=== PATIENT | male | born 1970 | race African-American/Black ===

== ENCOUNTER 2019-01-17 20:24 | Emergency (ER) | payer MEDICAID ==
[~2019-01-17] VITALS: Ht 175.3 cm; Wt 104.3 kg
[2019-01-17 21:48] LABS: Basophils # (auto) 0.1 uL; Basophils % (auto) 0.8 % (0.0-2.0); Eosinophils # (auto) 0 uL; Eosinophils % (auto) 0.8 % (0.0-7.0); Hematocrit 39.9 % (41.0-53.0); Hemoglobin 13.2 g/dL (13.5-17.5); Lymphocytes # (auto) 1.7 uL; Lymphocytes % (auto) 27.9 % (10.0-50.0); Mean Corpuscular Hemoglobin 33.2 pg (28.0-32.0); Mean Corpuscular Hgb Conc. 33.2 g/dL (32.0-36.0); Monocytes # (auto) 0.4 uL; Monocytes % (auto) 6.3 % (0.0-12.0); Neutrophils % (auto) 64.2 % (37.0-80.0); Nucleated Red Blood Cells % 0.1 %; Platelet Count (auto) 234 10^3/uL (140-450); Red Blood Cells 3.99 10^6/uL (4.5-5.90); Red Cell Distribution Width 14.2 % (11.8-14.3); White Blood Cell 6.2 10^3/uL (4.4-10.8)
[2019-01-17 22:08] LABS: Salicylate < 1.7 mg/dL (2.8-20.0)
[2019-01-17 22:09] LABS: Acetaminophen < 2.0 ug/mL (10-30)
[2019-01-17 22:16] LABS: Alanine Aminotransferase 24 U/L (16-61); Albumin 4.3 g/dL (3.4-5.0); Alkaline Phosphatase 66 U/L (45-117); Anion Gap 7 (5-15); Aspartate Aminotransferase 34 U/L (15-37); BUN/Creatinine Ratio 12.1; Blood Alcohol < 3.0 mg/dL (0-5); Blood Urea Nitrogen 17 mg/dL (7-18); Calcium 8.8 mg/dL (8.5-10.1); Carbon Dioxide 27 mmol/L (21-32); Chloride 104 mmol/L (98-107); GFR African American 70 mL/min; GFR Non-African American 57 mL/min; Glucose 108 mg/dL (74-106); Potassium 3.6 mmol/L (3.5-5.1); Sodium 138 mmol/L (136-145); Total Protein 8.1 g/dL (6.4-8.2)
[2019-01-17 22:17] LABS: Urine Bacteria FEW /hpf (None Seen); Urine Blood Negative /uL (Negative); Urine Mucus FEW (None Seen); Urine Specific Gravity 1.019 (1.001-1.035); Urine Sperm PRESENT /hpf (None Seen); Urine WBC 3 /hpf (0 - 3)
[2019-01-17 22:35] LABS: Alcohol, Urine < 3.0 mg/dL (0-5); Amphetamine Screen, Urine POSITIVE (NEGATIVE); Barbiturate Scree,Urine NEGATIVE (NEGATIVE); Benzodiazephine Screen, Urine NEGATIVE (NEGATIVE); Cannabinoid Screen, Urine POSITIVE (NEGATIVE); Cocaine Screen, Urine NEGATIVE (NEGATIVE); Opiate Scree,Urine NEGATIVE (NEGATIVE); Phencyclidine Screen, Urine NEGATIVE (NEGATIVE)
[2019-01-18 00:09] VITALS: BP 146/97
== END 2019-01-18 01:30 | disposition home or self-care (01) ==
LOC: ER 20:24
DX: S31.813A Puncture wound without foreign body of right buttock, initial encounter (principal); H11.1 Conjunctival degenerations and deposits; F17.210 Nicotine dependence, cigarettes, uncomplicated; Y08.89XA Assault by other specified means, initial encounter; Y93.89 Activity, other specified; Y99.8 Other external cause status; Y92.89 Other specified places as the place of occurrence of the external cause
CPT/HCPCS: 36415; 80053; 80307; 80320; 80329; 81001; 85025

== ENCOUNTER 2024-09-18 15:30 | Inpatient (IN) | payer MEDICAID ==
[~2024-09-18] VITALS: Ht 175.3 cm; Wt 111.2 kg
[2024-09-18] MEDS: SODIUM CHLORIDE 0.9% 1,000 ML IV ONE (16:06)
--- NOTE | 2024-09-18 16:30 | ED.PDOC ---
History of Present Illness HPI Comments This patient is a pleasant but morbidly obese 53 year old male with a Hx of DM presents to the ED fro the c/c of Hyperglycemia. Pt states that he was recently Dx with DM and prescribed 500 of metformin twice a day. Patient has received any diabetic counseling or training and does not understand aspects of m anagement of his condition. Noted that pts blood sugar upon triage examination was 473 and 492 with no improvement. Pt also notes of associated Generalized weakness and Dizziness. No other associated symptoms, modifiers, recent injuries or sick contacts present at this time. Patient was ambulating with a walker due to his unstable gait. Vital signs were stable. Chief Complaint: Hyperglycemia Time Seen by MD: 16:26 Primary Care Provider: NONE Reviewed Notes: Nurses Notes, Medications, Allergies Allergies: Coded Allergies: NO KNOWN ALLERGIES (Unverified , 01/08/10) Information Source: Patient Mode of Arrival: Ambulatory Severity: Moderate Timing: Hours Duration: Since onset, Hours Prehospital treatment: None Past Medical History PAST MEDICAL HISTORY: DM Surgical History: Denies all surgeries Family History Family History: Reviewed,noncontributory to illness Social History Smoker: Cigarettes Alcohol: Occasionally Drugs: Denies Drug Use Lives In: Home Constitutional: reports: fatigue, malaise, weakness; denies: chills, diaphoresis, fever, sweats, others EENTM: denies: blurred vision, double vision, ear bleeding, ear discharge, ear drainage, ear pain, ear ringing, eye pain, eye redness, hearing loss, mouth pain, mouth swelling, nasal discharge, nose bleeding, nose congestion, nose pain, photophobia, tearing, throat pain, throat swelling, voice changes, others Respiratory: denies: cough, hemoptysis, orthopnea, SOB at rest, shortness of breath, SOB with excertion, stridor, wheezing, others Cardiovascular: denies: chest pain, dizzy spells, diaphoresis, Dyspnea on exertion, edema, irregular heart beat, left arm pain, lightheadedness, palpitations, PND, syncope, others Gastrointestinal: denies: abdomen distended, abdominal pain, blood streaked bowels, constipated, diarrhea, dysphagia, difficulty swallowing, hematemesis, melena, nausea, poor appetite, poor fluid intake, rectal bleeding, rectal pain, vomiting, others Genitourinary: denies: burning, dysuria, flank pain, frequency, hematuria, incontinence, penile discharge, penile sore, pain, testicle pain, testicle swelling, urgency, others Neurological: reports: dizziness; denies: fainting, headache, left sided numbness, left sided weakness, numbness, paresthesia, pre-existing deficit, right sided numbness, right sided weakness, seizure, speech problems, tingling, tremors, weakness, others Musculoskeletal: denies: back pain, gout, joint pain, joint swelling, muscle pain, muscle stiffness, neck pain, others Integumetry: denies: bruises, change in color, change in hair/nails, dryness, laceration, lesions, lumps, rash, wounds, others Allergic/Immunocompromised: denies: Difficulty Healing, Frequent Infections, Hives, Itching, others Hematologic/Lymphatic: denies: anemia, blood clots, easy bleeding, easy bruising, swollen glands, others Endocrine: denies: excessive hunger, excessive sweating, excessive thirst, excessive urination, flushing, intolerance to cold, intolerance to heat, unexplained weight gain, unexplained weight loss, others Psychiatric: denies: anxiety, bipolar disorder, depression, hopeless, panic disorder, schizophrenia, sleepless, suicidal, others All Other Systems: Reviewed and Negative Physical Exam General Appearance: Moderate Distress (Patient appears to be in moderate distress due to generalized weakness concerns.), Obese HEENT: Pharynx Normal, TMs Normal, Other (Patient presents with bilateral scleral injection.) Neck: Full Range of Motion, Non-Tender, Normal, Normal Inspection Respiratory: Chest Non-Tender, Lungs Clear, No Accessory Muscle Use, No Respiratory Distress, Normal Breath Sounds Cardiovascular: No Edema, No JVD, No Murmur, No Gallop, Normal Peripheral Pulses, Regular Rate/Rhythm Breast Exam: Deferred Gastrointestinal: No Organomegaly, Non Tender, No Pulsatile Mass, Normal Bowel Sounds, Soft Genitalia: Deferred Pelvic: Deferred Rectal: Deferred Extremities: No calf tenderness, Normal capillary refill, Non-tender, No pedal edema Musculoskeletal : Apperance: Normal Neurologic: Alert, Normal Affect, Normal Mood Cerebellar Function: NOT DONE Reflexes: NOT DONE Skin: Dry, Normal Color, Warm Lymphatic: No Adenopathy Was a procedure done? Was a procedure done?: No Differential Dx Considerations may include: Hyperglycemia, electrolyte abnormality, sepsis X-Ray, Labs, Meds, VS Vital Signs Date Time Temp Pulse Resp B/P (MAP) Pulse Ox O2 Delivery O2 Flow Rate FiO2 09/18/24 19:14 97.9 90 17 118/77 (91) 97 97.9 09/18/24 17:47 98.1 95 16 148/93 (111) 96 98.1 09/18/24 16:01 97.9 105 18 115/79 (91) 97 97.9 09/18/24 16:01 105 18 97 Room Air 09/18/24 15:57 98.3 99 20 128/76 (93) 96 98.3 Lab Test 09/18/24 20:27 09/18/24 18:57 09/18/24 16:19 09/18/24 16:03 Range/Units POC Glucose 302 H 444 *H 70-106 mg/dl White Blood Count 3.7 L 4.4-10.8 10^3/uL Red Blood Count 4.08 L 4.5-5.90 10^6/uL Hemoglobin 12.5 L 13.5-17.5 g/dL Hematocrit 37.8 L 41.0-53.0 % Mean Corpuscular Volume 92.8 80.0-100.0 fL Mean Corpuscular Hemoglobin 30.6 28.0-32.0 pg Mean Corpuscular Hemoglobin Concent 33.0 32.0-36.0 g/dL Red Cell Distribution Width 15.0 H 11.8-14.3 % Platelet Count 183 140-450 10^3/uL Mean Platelet Volume 10.0 6.9-10.8 fL Neutrophils (%) (Auto) 44.5 37.0-80.0 % Lymphocytes (%) (Auto) 45.6 10.0-50.0 % Monocytes (%) (Auto) 7.0 0.0-12.0 % Eosinophils (%) (Auto) 1.9 0.0-7.0 % Basophils (%) (Auto) 1.0 0.0-2.0 % Neutrophils # (Auto) 1.7 1.6-8.6 10 ^3/uL Lymphocytes # (Auto) 1.7 0.4-5.4 10 ^3/uL Monocytes # (Auto) 0.3 0-1.3 10 ^3/uL Eosinophils # (Auto) 0.1 0-0.8 10 ^3/uL Basophils # (Auto) 0 0-0.2 10 ^3/uL Nucleated Red Blood Cells 0.2 % Sodium Level 133 L 136-145 mmol/L Potassium Level 4.6 3.5-5.1 mmol/L Chloride Level 97 L 98-107 mmol/L Carbon Dioxide Level 29 20-31 mmol/L Anion Gap 7 5-15 Blood Urea Nitrogen 9 9-23 mg/dL Creatinine 1.35 H 0.700-1.30 mg/dL Glomerular Filtration Rate Calc 63 >90 mL/min BUN/Creatinine Ratio 6.7 L 10.0-20.0 Serum Glucose 489 *H 74-106 mg/dL Calcium Level 9.6 8.7-10.4 mg/dL Total Bilirubin 0.5 0.2-1.0 mg/dL Aspartate Amino Transferase (AST) 15 13-40 U/L Alanine Aminotransferase (ALT) 13 7-40 U/L Alkaline Phosphatase 82 46-116 U/L Troponin I High Sensitivity 18 </=54 ng/L B-Type Natriuretic Peptide 22.55 0-100 pg/mL Total Protein 6.2 5.7-8.2 g/dL Albumin 3.9 3.2-4.8 g/dL Urine Color Light-yellow Yellow Urine Clarity Clear Clear Urine pH 8.0 5.0-9.0 Urine Specific [place] 1.028 1.001-1.035 Urine Protein Negative Negative Urine Ketones Trace Negative Urine Blood Negative Negative /uL Urine Nitrite Negative Negative Urine Bilirubin Negative Negative Urine Urobilinogen Normal Negative mg/dL Urine Leukocyte Esterase Negative Negative /uL Urine RBC <1 0 - 3 /hpf Urine Microscopic WBC < 1 0-3 /HPF Urine Squamous Epithelial Cells None seen <5 /hpf Urine Bacteria None seen None Seen /hpf Urine Glucose 4+ H Normal mg/dL Test 09/18/24 15:45 09/18/24 15:44 Range/Units POC Glucose 492 *H 473 *H 70-106 mg/dl Current Medications Medications (Trade) Dose Ordered Sig/Denia Route Start Time Stop Time Status Last Admin Sodium Chloride 1,000 ml @ 1,000 mls/hr Q1H ONCE IV 09/18/24 16:00 09/18/24 16:59 DC 09/18/24 16:06 Insulin Human Regular (InsuLIN R) 12 units ONCE ONCE SC 09/18/24 17:00 7/4/25 17:01 DC 09/18/24 17:05 Insulin Human Regular (InsuLIN R) 15 units ONCE ONCE IV 09/18/24 19:00 09/18/24 19:01 DC 09/18/24 19:21 X-Ray, Labs, Meds, VS Comment All studies performed in the ED were evaluated by me personally. Laboratories studies were remarkable for a mild hyponatremia but a significant hyperglycemic state. Multiple rounds of regular insulin wound was utilized to attempt to reduce the patient's blood sugar concerns. After multiple rounds of insulin, patient's blood sugar remained above 300. Patient will be admitted for additional stabilization of his blood sugar concerns as well as proper instruction and direction for home management of his diabetic concerns. Time of 1ST Reevaluation: 20:49 Reevaluation 1ST: Unchanged Consultation: PCP Patient Education/Counseling: Diagnosis, Treatment, Need For Follow Up Family Education/Counseling: Diagnosis, Treatment, No Family Present SEPSIS Sepsis Screen Date sepsis recognized/suspect: Sep 18, 2024 Time Sepsis recognized/suspect: 1557 Recent Procedure: No On Antibiotic Therapy: No Respiratory Rate >20: No Heart Rate >90: Yes Temp<36 C (96.8 F) or >38.3 C: No SBP <90 or MAP <65 mmHG: No New Acute Mental Status Change: No Is the patient on CPAP, BIPAP,: No Physician Orders Heplock Iv (09/18/24 ) Electrocardigram (09/18/24 15:49) Vital Signs Date Time Temp Pulse Resp B/P (MAP) Pulse Ox O2 Delivery O2 Flow Rate FiO2 09/18/24 19:14 97.9 90 17 118/77 (91) 97 97.9 09/18/24 17:47 98.1 95 16 148/93 (111) 96 98.1 09/18/24 16:01 97.9 105 18 115/79 (91) 97 97.9 09/18/24 16:01 105 18 97 Room Air 09/18/24 15:57 98.3 99 20 128/76 (93) 96 98.3 Laboratory Tests Test 09/18/24 16:19 White Blood Count 3.7 10^3/uL (4.4-10.8) L Medications Medications Dose Ordered Sig/Denia Route Start Time Stop Time Status Last Admin Dose Admin Insulin Human Regular 12 units ONCE ONCE SC 09/18/24 17:00 09/18/24 17:01 DC 09/18/24 17:05 Insulin Human Regular 15 units ONCE ONCE IV 09/18/24 19:00 09/18/24 19:01 DC 09/18/24 19:21 Sodium Chloride 1,000 ml @ 1,000 mls/hr Q1H ONCE IV 09/18/24 16:00 09/18/24 16:59 DC 09/18/24 16:06 Departure 1 Departure Time of Disposition: 20:49 Impression: Primary Impression: Hyperglycemia due to diabetes mellitus Additional Impressions: Hyponatremia Risk for falls Disposition: ADMITTED INPATIENT Condition: Fair Discharged With: Self Critical Care Note Critical Care Time?: No Stability Stability form required: No Heart Score Heart Score: Heart Score Response (Comments) Value History N/A 0 EKG N/A 0 Age 45-64 1 Risk Factors No known risk factors 0 Troponin N/A 0 Total 1 I personally scribed for LOWELL SHAW PAC ([email or web address]) on 09/18/24 at 16:30. Electronically submitted by Agustín Davidson ([email or web address]). LOWELL SHAW PAC Sep 18, 2024 16:30
[2024-09-18 16:34] LABS: Hematocrit 37.8 % (41.0-53.0); Hemoglobin 12.5 g/dL (13.5-17.5); Mean Corpuscular Hemoglobin 30.6 pg (28.0-32.0); Mean Corpuscular Volume 92.8 fL (80.0-100.0); Nucleated Red Blood Cells % 0.2 %
[2024-09-18 16:51] LABS: Alanine Aminotransferase 13 U/L (7-40); Albumin 3.9 g/dL (3.2-4.8); Alkaline Phosphatase 82 U/L (46-116); Anion Gap 7 (5-15); BUN/Creatinine Ratio 6.7 (10.0-20.0); Blood Urea Nitrogen 9 mg/dL (9-23); Calcium 9.6 mg/dL (8.7-10.4); Carbon Dioxide 29 mmol/L (20-31); Potassium 4.6 mmol/L (3.5-5.1); Total Protein 6.2 g/dL (5.7-8.2)
[2024-09-18 16:52] LABS: Bilirubin, Total 0.5 mg/dL (0.2-1.0); Chloride 97 mmol/L (98-107); Sodium 133 mmol/L (136-145)
[2024-09-18 16:57] LABS: Glucose 489 mg/dL (74-106)
[2024-09-18] MEDS: InsuLIN REG 1unit/0.01ml Soln (100units/ml) SC ONE (17:05)
[2024-09-18 17:38] LABS: Urine Protein, UAD Negative (Negative)
[2024-09-18] MEDS: InsuLIN REG 1unit/0.01ml Soln (100units/ml) IV ONE (19:21)
--- NOTE | 2024-09-18 23:27 | DVHHP2 ---
History of Present Illness History of Present Illness This is a 53-year-old male with past medical history of DM2, HTN presented to ED with the complain of feeling dizzy, anxious and occasionally blurry vision. Patient visited to ER in [place] 3rd week of August due to similar symptoms and found his blood sugar level was high. Patient treated with insulin, IV fluid and discharged home with glucose monitor. Patient checked his blood sugar at home and found his blood sugar high which ranges 350 to 600. Patient followed up with his primary care and prescribed oral metformin and advised to monitor blood sugar daily. Patient found his blood sugar > 300 though taking oral metformin. Last blood sugar at home 360,466. Patient used walker last three days because he is pretending to fall. Patient also mentally disturbed by his neighbor, they consistently keep presser to leave his house. Patient lives alone and follow up with psychiatrist and prescribed anxiety medication unable to mentioned, took as needed. Currently patient denies any chest pain, shortness of breath, nausea, vomiting, abdominal pain, headache or any acute distress. Past medical history: Diabetes mellitus, hypertension Surgical history: None Personal and social history: Lives alone, denies any smoking, EtOH use, any substance use , drive [place]. Allergy: No known allergy MEDICINE: METFORMIN 500 mg, losartan 100 mg. PCP: UNABLE TO RECALL THE NAME. Review of Systems Constitutional: Yes: Fever, Chills, Sweats, Weakness, Malaise, Other Eyes: Pain, Vision change, Conjunctivae inflammation, Eyelid inflammation, Other, Redness ENT: Ear pain, Ear discharge, Nose pain, Nose discharge, Nose congestion, Mouth pain, Mouth swelling, Throat pain, Throat swelling, Other Respiratory: Cough, Dry, Shortness of breath, SOB with excertion, Wheezing, He moptysis, Pleuritic Pain, Sputum, Wheezing, Other Cardiovascular: Chest Pain, Palpitations, Orthopnea, Paroxysmal Noc. Dyspnea, Edema, Lt Headedness, Other Gastrointestinal: Nausea, Vomiting, Abdominal Pain, Diarrhea, Constipation, Melena, Hematochezia, Other Genitourinary: Dysuria, Frequency, Incontinence, Hematuria, Retention, Other Musculoskeletal: other, neck pain, shoulder pain, arm pain, back pain, hand pain, leg pain, foot pain Neurological: Weakness, Numbness, Incoordination, Change in speech, Confusion, Seizures, Other Allergies: Coded Allergies: NO KNOWN ALLERGIES (Unverified , 01/08/10) Exam Vital Signs Vital Signs Date Time Temp Pulse Resp B/P (MAP) Pulse Ox O2 Delivery O2 Flow Rate FiO2 09/18/24 21:57 98.2 66 18 119/84 (96) 98 98.2 09/18/24 16:01 Room Air General Appearance: Alert, Oriented X3, Cooperative, No acute distress HEENT: Atraumatic, PERRLA, EOMI Respiratory: Clear to auscultation Cardiovascular: Regular rate, Normal S1, Normal S2 Abdominal: Normal bowel sounds, Soft, No tenderness, No hepatospenomegaly, No masses Extremities: No clubbing, No cyanosis, No edema Skin: No rashes, No breakdown Neuro: Other (Use walker for ambulation) Labs/Xrays Labs Test 09/18/24 20:27 09/18/24 16:19 09/18/24 16:03 Range/Units POC Glucose 302 H 70-106 mg/dl White Blood Count 3.7 L 4.4-10.8 10^3/uL Red Blood Count 4.08 L 4.5-5.90 10^6/uL Hemoglobin 12.5 L 13.5-17.5 g/dL Hematocrit 37.8 L 41.0-53.0 % Mean Corpuscular Volume 92.8 80.0-100.0 fL Mean Corpuscular Hemoglobin 30.6 28.0-32.0 pg Mean Corpuscular Hemoglobin Concent 33.0 32.0-36.0 g/dL Red Cell Distribution Width 15.0 H 11.8-14.3 % Platelet Count 183 140-450 10^3/uL Mean Platelet Volume 10.0 6.9-10.8 fL Neutrophils (%) (Auto) 44.5 37.0-80.0 % Lymphocytes (%) (Auto) 45.6 10.0-50.0 % Monocytes (%) (Auto) 7.0 0.0-12.0 % Eosinophils (%) (Auto) 1.9 0.0-7.0 % Basophils (%) (Auto) 1.0 0.0-2.0 % Neutrophils # (Auto) 1.7 1.6-8.6 10 ^3/uL Lymphocytes # (Auto) 1.7 0.4-5.4 10 ^3/uL Monocytes # (Auto) 0.3 0-1.3 10 ^3/uL Eosinophils # (Auto) 0.1 0-0.8 10 ^3/uL Basophils # (Auto) 0 0-0.2 10 ^3/uL Nucleated Red Blood Cells 0.2 % Sodium Level 133 L 136-145 mmol/L Potassium Level 4.6 3.5-5.1 mmol/L Chloride Level 97 L 98-107 mmol/L Carbon Dioxide Level 29 20-31 mmol/L Anion Gap 7 5-15 Blood Urea Nitrogen 9 9-23 mg/dL Creatinine 1.35 H 0.700-1.30 mg/dL Glomerular Filtration Rate Calc 63 >90 mL/min BUN/Creatinine Ratio 6.7 L 10.0-20.0 Serum Glucose 489 *H 74-106 mg/dL Calcium Level 9.6 8.7-10.4 mg/dL Total Bilirubin 0.5 0.2-1.0 mg/dL Aspartate Amino Transferase (AST) 15 13-40 U/L Alanine Aminotransferase (ALT) 13 7-40 U/L Alkaline Phosphatase 82 46-116 U/L Troponin I High Sensitivity 18 </=54 ng/L B-Type Natriuretic Peptide 22.55 0-100 pg/mL Total Protein 6.2 5.7-8.2 g/dL Albumin 3.9 3.2-4.8 g/dL Urine Color Light-yellow Yellow Urine Clarity Clear Clear Urine pH 8.0 5.0-9.0 Urine Specific [place] 1.028 1.001-1.035 Urine Protein Negative Negative Urine Ketones Trace Negative Urine Blood Negative Negative /uL Urine Nitrite Negative Negative Urine Bilirubin Negative Negative Urine Urobilinogen Normal Negative mg/dL Urine Leukocyte Esterase Negative Negative /uL Urine RBC <1 0 - 3 /hpf Urine Microscopic WBC < 1 0-3 /HPF Urine Squamous Epithelial Cells None seen <5 /hpf Urine Bacteria None seen None Seen /hpf Urine Glucose 4+ H Normal mg/dL Assessment/Plan Assessment/Plan #Uncontrolled type2 Diabetes Mellitus with hyperglycemia -Patient came with symptoms of hyperglycemia -In ED blood sugar 489, received regular insulin, NS bolus. - Home FSBS >300 -Recently started oral metformin 500 MG BID -Anion gap 7 -Troponin 18 -BNP 22.55 - carbohydrate controlled diet -Lantus 15 units bedtime, ordered but pt received late.pls, adjust dose accordingly. - Lipitor 40 mg p.o. daily, pt age >40 yrs and prophylaxis. -Insulin sliding dose -Monitor blood sugar - HBA1c 13.2, TSH 1.81 -diabetic education # CAILIN due to vasomotor nephropathy, CKD stage 2 -SERUM CREATININE 1.35 -eGFR 66 -continue IV fluid 100 cc/hour -monitor BMP -Follow urine protein creatinine ratio -Hold losartan for now # Essential hypertension -patient is on losartan 100 mg p.o. daily -Hold losartan for now due to CAILIN. -we will resume after follow up BMP -life is style modification #Anxiety disorder -patient seen psychiatrist outside and prescribed anxiety medication but unable to recall name #Morbid Obesity -BMI 36.9 - lipid profile: TG 250. LDL 71 # Pseudohyponatremia Hyponatremia due to hyperglycemia -ON admission sodium level 133 -Corrected sodium 139 -repeat sodium- 136 # GI prophylaxis: Continue famotidine 40 mg daily # DVT prophylaxis: Patient ambulating # diet: Diabetic diet Goals of care discussion, is spent more than 26 minutes. Code status-full code Case discussed with Dr. Mcnally. Plan discussed with: Patient, Other (Nurse) My Orders Orders - DESTIN CURRIE Procedure Category Date Status Time Admit ADMIT 09/18/24 Verified 23:23 Nitroglycerin PHA 09/18/24 Verified Sublingual (Ntrostat 23:30 Morphine Sulfate PHA 09/18/24 Verified Injection 23:30 Date of Service: Sep 18, 2024 Billing Provider: RICHAR MCNALLY MD Common Visit Codes: [id number] INP/OBS CARE (HIGH) Secondary Visit Codes: [id number] CARE PLAN 30 MINUTES DESTIN CURRIE Sep 18, 2024 23:27
[2024-09-18] MEDS ORDERED: MORPHINE SULFATE INJ 2 MG/ml SYRG IV PRN (23:30)
[2024-09-18] MEDS ORDERED: NITROGLYCERIN 0.4 MG SL TAB SL PRN (23:30)
[2024-09-19 04:39] LABS: Chloride 101 mmol/L (98-107); Potassium 3.8 mmol/L (3.5-5.1)
[2024-09-19 04:40] LABS: Anion Gap 8 (5-15); Carbon Dioxide 27 mmol/L (20-31)
[2024-09-19 04:41] LABS: Calcium 9.8 mg/dL (8.7-10.4)
[2024-09-19 04:46] LABS: BUN/Creatinine Ratio 6.2 (10.0-20.0)
[2024-09-19 04:48] LABS: Cholesterol 156 mg/dL (< 200)
[2024-09-19 04:50] LABS: Blood Urea Nitrogen 8 mg/dL (9-23); Glucose 291 mg/dL (74-106); HDL Cholesterol 28 mg/dL (40-59); Sodium 136 mmol/L (136-145); Triglycerides 250 mg/dL (< 150)
[2024-09-19 04:51] VITALS: BP 138/94; PULSE 72; PULSE 78; RESP 17; RESP 18; TEMP 97.7; O2SAT 97; O2SAT 99
[2024-09-19] MEDS ORDERED: METF-370 PO (06:26)
[2024-09-19] MEDS ORDERED: CHOL20007 PO (06:26)
[2024-09-19] MEDS ORDERED: LOSA-535 PO (06:26)
[2024-09-19] MEDS: ATORVASTATIN 20 MG TAB PO ONE (06:45)
[2024-09-19] MEDS: InsuLIN REG 1unit/0.01ml Soln (100units/ml) SC SCH (07:00)
[2024-09-19] MEDS: INSULIN LANTUS (GLARGINE) 1 /0.01ml (100units/ml) SC SCH (07:01)
[2024-09-19] MEDS: SODIUM CHLORIDE 0.9% 1,000 ML IV SCH (07:02)
[2024-09-19] MEDS: InsuLIN REG 1unit/0.01ml Soln (100units/ml) SC ONE (07:30)
[2024-09-19 08:00] VITALS: PULSE 76; RESP 17
[2024-09-19] MEDS: FAMOTIDINE 20 MG TAB PO SCH (08:57)
[2024-09-19 09:00] VITALS: BP 137/84; PULSE 92; RESP 20; TEMP 98.3; O2SAT 97
[2024-09-19] MEDS: INSULIN LISPRO (HUMAN) 100 UNITS/ML ML SC SCH (11:23)
[2024-09-19 13:00] VITALS: BP 138/91; PULSE 86; RESP 20; TEMP 98.2; O2SAT 96
[2024-09-19 17:00] VITALS: BP 133/96; PULSE 85; RESP 20; TEMP 98.5; O2SAT 96
--- NOTE | 2024-09-19 20:23 | DVHPNRES ---
Progress Note Date Seen: Sep 19, 2024 Resident Creating Document: CHRISTIAN PEDERSON RESIDENT Medical Necessity Reason Pt with a Central, PICC or Fol: No Subjective Review of Systems This is a 53-year-old male with past medical history of DM2, HTN presented to ED with the complain of feeling dizzy, anxious and occasionally blurry vision. Patient visited to ER in [place] 3rd week of August due to similar symptoms and found his blood sugar level was high. Patient treated with insulin, IV fluid and discharged home with glucose monitor. Patient checked his blood sugar at home and found his blood sugar high which ranges 350 to 600. Patient followed up with his primary care and prescribed oral metformin and advised to monitor blood sugar daily. Patient found his blood sugar > 300 though taking oral metformin. Last blood sugar at home 360,466. Patient used walker last three days because he was weak, unstable and risk of fall. Patient also mentally disturbed by his neighbor, they consistently keep pressure to leave his house. Patient lives alone and follow up with psychiatrist and prescribed anxiety medication unable to mentioned, took as needed. Currently patient denies any chest pain, shortness of breath, nausea, vomiting, abdominal pain, headache or any acute distress. Patient was seen and examined on the bedside. He is alert oriented x3. Mentioned feeling better and no active complaint at this time. Constitutional: No: Fever, Chills, Sweats, Weakness, Malaise, Other Eyes: No: Pain, Vision change, Conjunctivae inflammation, Eyelid inflammation, Other, Redness ENT: No: Ear pain, Ear discharge, Nose pain, Nose discharge, Nose congestion, Mouth pain, Mouth swelling, Throat pain, Throat swelling, Other Respiratory: Shortness of breath, improving No: Cough, Dry,Wheezing, Hemoptysis, Pleuritic Pain, Sputum, Wheezing, Other Cardiovascular: No: Chest Pain, Palpitations, Orthopnea, Paroxysmal Noc. Dyspnea, Edema, Lt Headedness, Other Gastrointestinal: No: Nausea, Vomiting, Abdominal Pain, Diarrhea, Constipation, Melena, Hematochezia, Other Musculoskeletal: No: other, neck pain, shoulder pain, arm pain, back pain, hand pain, leg pain, foot pain Neurological:; No: Weakness, Numbness, Incoordination, Change in speech, Confusion, Seizures Objective vital signs Vital Sign Date Time Temp Pulse Resp B/P (MAP) Pulse Ox O2 Delivery O2 Flow Rate FiO2 7/5/25 17:00 98.5 85 20 133/96 (108) 96 98.5 09/19/24 08:00 Room Air* 0 21 Total Intake and Output 09/18/24 09/18/24 09/19/24 15:00 23:00 07:00 Intake Total 1000 ml 0 ml Balance 1000 ml 0 ml medications Current Medications Medications Dose Ordered Sig/Denia Route Start Time Stop Time Status Last Admin Dose Admin Nitroglycerin 0.4 mg Q5MINP PRN SL 09/18/24 23:30 Morphine Sulfate 2 mg Q30M PRN IV 09/18/24 23:30 Insulin Human Regular AC SC 09/19/24 07:00 09/19/24 17:18 9 UNITS Sodium Chloride 1,000 ml @ 100 mls/hr Q10H IV 09/18/24 23:45 09/19/24 08:02 100 MLS/HR Atorvastatin Calcium 40 mg HS PO 09/19/24 22:00 Famotidine 40 mg DAILY PO 09/19/24 10:00 09/19/24 08:57 40 MG Insulin Glargine 15 units QAM SC 09/20/24 07:00 Insulin Human Lispro 3 units AC SC 09/19/24 11:30 09/19/24 17:19 3 UNITS Losartan Potassium 25 mg DAILY PO 09/20/24 10:00 Examination Physical examination: General Appearance: Alert, Oriented X3, Cooperative, No acute distress HEENT: Atraumatic, PERRLA, EOMI, Mucous membrane moist/pink Respiratory: Clear to auscultation, Normal air movement Cardiovascular: Regular rate, Normal S1, Normal S2, No murmurs, no chest wall tenderness Abdominal: Normal bowel sounds, Soft, No tenderness, No hepatospenomegaly, No masses Extremities: No clubbing, No cyanosis, No edema, Normal pulses, No tenderness/swelling Skin: No rashes, No breakdown, No significant lesion Neuro: Normal gait, Normal speech, Strength at 5/5 X4 ext, Normal tone, Sensation intact, Cranial nerves 3-12 NL, Reflexes 2+ Psych/Mental Status: Mental status NL, Mood NL laboratory and microbiology Laboratory Tests 09/19/24 03:30 09/18/24 16:19 Test 09/19/24 03:30 Range/Units Serum Glucose 291 #H 74-106 mg/dL Labs and/or images reviewed: Labs reviewed by me, Image(s) reviewed by me Problem List/Assessment/Plan Problem List/Assessment/Plan Assessment and plan: # Uncontrolled type 2 diabetes mellitus with hyperglycemia, hemoglobin A1c 13.2 # Hypertriglyceridemia - IV NS at 100 mL/hour - Lantus 15 units at q.a.m., bolus Humalog 3 units as per protocol before each meal and mild sliding scale of insulin - Atorvastatin 40 mg at HS - Monitor blood sugar and adjust insulin as needed. # Essential hypertension - Losartan 25 mg p.o. daily # PUD prophylaxis - Famotidine 40 mg p.o. daily # DVT prophylaxis - Lovenox 40 mg sc daily Plan discussed with the patient for more than 21 minutes full code Plan discussed with Dr. Chawla Plan discussed with: Patient, Other My Orders My Orders Orders - CHRISTIAN PEDERSON Procedure Category Date Status Time Insulin Lispro PHA 09/19/24 In Process (Human) (Humalog) 11:30 Losartan Tablet PHA 09/20/24 In Process (Cozaar Tablet) 10:00 Date of Service: Sep 19, 2024 Billing Provider: ERIKA CHAWLA MD Common Visit Codes: [id number] INP/OBS CARE(HIGH) CHRISTIAN PEDERSON Sep 19, 2024 20:23 ERIKA CHAWLA MD Sep 20, 2024 21:13
[2024-09-19 21:00] VITALS: BP 119/76; PULSE 81; RESP 18; TEMP 99.2; O2SAT 99
[2024-09-19] MEDS: ATORVASTATIN 20 MG TAB PO SCH (21:12)
[2024-09-20 01:00] VITALS: BP 138/91; PULSE 79; RESP 18; TEMP 98.8; O2SAT 95
[2024-09-20 05:00] VITALS: BP 133/96; PULSE 83; RESP 18; TEMP 98.5; O2SAT 95
[2024-09-20 06:10] LABS: Hematocrit 37.7 % (41.0-53.0); Hemoglobin 12.9 g/dL (13.5-17.5); Mean Corpuscular Hemoglobin 31.4 pg (28.0-32.0); Mean Corpuscular Volume 91.9 fL (80.0-100.0); Nucleated Red Blood Cells % 0.4 %
[2024-09-20 06:11] LABS: Chloride 103 mmol/L (98-107); Potassium 3.8 mmol/L (3.5-5.1); Sodium 137 mmol/L (136-145)
[2024-09-20 06:12] LABS: Anion Gap 10 (5-15); Calcium 9.2 mg/dL (8.7-10.4); Carbon Dioxide 24 mmol/L (20-31)
[2024-09-20 06:17] LABS: BUN/Creatinine Ratio 6.9 (10.0-20.0); Blood Urea Nitrogen 9 mg/dL (9-23); Glucose 311 mg/dL (74-106)
[2024-09-20] MEDS: INSULIN LANTUS (GLARGINE) 1 /0.01ml (100units/ml) SC SCH (06:20)
[2024-09-20 08:43] VITALS: BP 143/100; PULSE 94; RESP 20; TEMP 98.5; O2SAT 98
--- NOTE | 2024-09-20 09:46 | DVHPNRES ---
Progress Note Date Seen: Sep 20, 2024 Resident Creating Document: MALINA GARCIA RESIDENT Has the PT tested + for MRSA If YES, has PT been informed?: No Medical Necessity Reason Pt with a Central, PICC or Fol: No Subjective Review of Systems This is a 53-year-old male with past medical history of DM2, HTN presented to ED with the complain of feeling dizzy, anxious and occasionally blurry vision. Patient visited to ER in [place] 3rd week of August due to similar symptoms and found his blood sugar level was high. Patient treated with insulin, IV fluid and discharged home with glucose monitor. Patient checked his blood sugar at home and found his blood sugar high which ranges 350 to 600. Patient followed up with his primary care and prescribed oral metformin and advised to monitor blood sugar daily. Patient found his blood sugar > 300 though taking oral metformin. Last blood sugar at home 360,466. Patient used walker last three days because he was weak, unstable and risk of fall. Patient also mentally disturbed by his neighbor, they consistently keep pressure to leave his house. Patient lives alone and follow up with psychiatrist and prescribed anxiety medication unable to mentioned, took as needed. Currently patient denies any chest pain, shortness of breath, nausea, vomiting, abdominal pain, headache or any acute distress. Patient seen at bedside. He appears comfortable, alert #3, mentioned he feels better than yesterday, no complaints at this time. Patient reported taking metformin before breakfast, and was educated to take after breakfast and after dinner. Patient reports sleeping well and eating well. He denies headache, dizziness, nausea, vomiting, and abdominal pain. Objective vital signs Vital Sign Date Time Temp Pulse Resp B/P (MAP) Pulse Ox O2 Delivery O2 Flow Rate FiO2 09/20/24 08:43 98.5 94 20 143/100 (114) 98 98.5 09/19/24 20:00 Room Air* 0 21 Total Intake and Output 09/19/24 09/19/24 09/20/24 15:00 23:00 07:00 Intake Total 2800 ml 1875 ml Output Total 2100 ml Balance 2800 ml -225 ml medications Current Medications Medications Dose Ordered Sig/Denia Route Start Time Stop Time Status Last Admin Dose Admin Nitroglycerin 0.4 mg Q5MINP PRN SL 09/18/24 23:30 Morphine Sulfate 2 mg Q30M PRN IV 09/18/24 23:30 Insulin Human Regular AC SC 09/19/24 07:00 09/20/24 06:19 20 UNITS Sodium Chloride 1,000 ml @ 100 mls/hr Q10H IV 09/18/24 23:45 09/20/24 06:36 100 MLS/HR Atorvastatin Calcium 40 mg HS PO 09/19/24 22:00 09/19/24 21:12 40 MG Famotidine 40 mg DAILY PO 09/19/24 10:00 09/19/24 08:57 40 MG Insulin Glargine 15 units QAM SC 09/20/24 07:00 09/20/24 06:20 15 UNITS Insulin Human Lispro 3 units AC SC 09/19/24 11:30 09/20/24 06:18 3 UNITS Losartan Potassium 25 mg DAILY PO 09/20/24 10:00 Examination General: Patient alert and oriented in person, place and time. Patient following commands. HEENT: Normocephalic, atraumatic, moist mucous membranes Respiratory/pulmonary: Clear lungs bilaterally, vesicular murmurs present in almost all lung jolley, no associated crackles or wheezes. Cardiovascular: Normal heart sounds S1 and S2 with no associated murmurs Abdomen: Abdomen nondistended, there is no pain to palpation in any of the abdominal quadrants, no palpable masses. Extremities: There is no peripheral edema present at the lower extremities. Peripheral Pulses: 3+ Radial (R). 3+ Radial (L). 3+ Dorsalis pedis (R). 3+ Dorsalis pedis(L) Skin: No rashes or pruritus, there is no sacral edema present at this time. Neurological: Intact cranial nerves with no focal neurologic deficits laboratory and microbiology Laboratory Tests 09/20/24 04:49 Test 09/20/24 04:49 Range/Units Serum Glucose 311 H 74-106 mg/dL Problem List/Assessment/Plan Problem List/Assessment/Plan # Uncontrolled type 2 diabetes mellitus with hyperglycemia, hemoglobin A1c 13.2 # Hypertriglyceridemia - IV NS at 100 mL/hour - Stopped - Lantus 20 units at q.a.m., bolus Humalog 4 units as per protocol before each meal and mild sliding scale of insulin - Atorvastatin 40 mg at HS - Monitor blood sugar and adjust insulin as needed. # Essential hypertension - Losartan 25 mg p.o. daily # PUD prophylaxis - Famotidine 40 mg p.o. daily # DVT prophylaxis - Lovenox 40 mg sc daily Plan discussed with the patient for more than 21 minutes full code Plan discussed with Dr. Chawla Plan discussed with: Patient Date of Service: Sep 19, 2024 Billing Provider: ERIKA CHAWLA MD Common Visit Codes: [id number] INP/OBS CARE(HIGH) MALINA GARCIA RESIDENT Sep 20, 2024 09:46 ERIKA CHAWLA MD Sep 20, 2024 21:16
[2024-09-20] MEDS: LOSARTAN POTASSIUM 25 MG TAB PO SCH (10:29)
[2024-09-20 12:35] VITALS: BP 136/96; PULSE 84; RESP 18; TEMP 98.8; O2SAT 99
[2024-09-20 16:45] VITALS: BP 127/88; PULSE 79; RESP 18; TEMP 98.6; O2SAT 98
[2024-09-20] MEDS: INSULIN LISPRO (HUMAN) 100 UNITS/ML ML SC SCH (17:00)
[2024-09-20 21:00] VITALS: BP 114/81; PULSE 96; RESP 18; TEMP 96.4; O2SAT 97
[2024-09-21 05:00] VITALS: BP 128/86; PULSE 68; RESP 18; TEMP 98; O2SAT 96
[2024-09-21] MEDS: INSULIN LANTUS (GLARGINE) 1 /0.01ml (100units/ml) SC SCH (06:29)
[2024-09-21] MEDS ORDERED: LOSA-535 PO (07:00)
[2024-09-21] MEDS ORDERED: INSLANTI SC (07:00)
[2024-09-21] MEDS ORDERED: INSLISPI SC (07:00)
[2024-09-21] MEDS ORDERED: METF-370 PO (07:00)
[2024-09-21 07:50] VITALS: PULSE 92; RESP 16; O2SAT 96
[2024-09-21 08:45] VITALS: BP 133/92; PULSE 92; RESP 16; TEMP 98.8; O2SAT 96
[2024-09-21 10:09] LABS: Hepatitis B Surface Antigen Negative (Negative)
[2024-09-21 10:19] LABS: Hematocrit 41.6 % (41.0-53.0); Hemoglobin 14.1 g/dL (13.5-17.5); Mean Corpuscular Hemoglobin 31.7 pg (28.0-32.0); Mean Corpuscular Volume 93.5 fL (80.0-100.0); Nucleated Red Blood Cells % 0.1 %
[2024-09-21 10:33] LABS: Anion Gap 9 (5-15); Carbon Dioxide 27 mmol/L (20-31); Chloride 101 mmol/L (98-107); Potassium 3.7 mmol/L (3.5-5.1); Sodium 137 mmol/L (136-145)
[2024-09-21 10:34] LABS: Hepatitis C Antibody Negative (Negative)
[2024-09-21 10:34] LABS: Calcium 10.1 mg/dL (8.7-10.4)
[2024-09-21 10:39] LABS: BUN/Creatinine Ratio 6.5 (10.0-20.0)
[2024-09-21 10:40] LABS: Blood Urea Nitrogen 9 mg/dL (9-23); Glucose 242 mg/dL (74-106)
[2024-09-21 13:00] VITALS: BP 125/85; PULSE 87; RESP 17; TEMP 98.2; O2SAT 100
[2024-09-21] MEDS ORDERED: LANC-347 XX (16:03)
[2024-09-21] MEDS ORDERED: BLOO1KIT60 XX (16:03)
[2024-09-21] MEDS: INSULIN LISPRO (HUMAN) 100 UNITS/ML ML SC ONE (16:21)
[2024-09-21 16:28] VITALS: BP 125/85; PULSE 87; RESP 17; TEMP 98.2; O2SAT 100
--- NOTE | 2024-09-21 16:53 | DVHDSRES ---
Discharge Summary Date of Admission Resident Creating Document: MALINA GARCAI RESIDENT Sep 18, 2024 at 23:23 Date of Discharge: Sep 21, 2024 Admitting Diagnosis Uncontrolled type 2 diabetes mellitus with hyperglycemia. Wounds: No wound was present Labs/Diagnostic Data: Laboratory Results Test 09/21/24 16:07 09/21/24 09:57 09/19/24 03:30 09/18/24 16:19 POC Glucose 216 mg/dl (70-106) White Blood Count 4.1 10^3/uL (4.4-10.8) Red Blood Count 4.45 10^6/uL (4.5-5.90) Hemoglobin 14.1 g/dL (13.5-17.5) Hematocrit 41.6 % (41.0-53.0) Mean Corpuscular Volume 93.5 fL (80.0-100.0) Mean Corpuscular Hemoglobin 31.7 pg (28.0-32.0) Mean Corpuscular Hemoglobin Concent 33.9 g/dL (32.0-36.0) Red Cell Distribution Width 14.8 % (11.8-14.3) Platelet Count 184 10^3/uL (140-450) Mean Platelet Volume 9.5 fL (6.9-10.8) Neutrophils (%) (Auto) 37.7 % (37.0-80.0) Lymphocytes (%) (Auto) 53.3 % (10.0-50.0) Monocytes (%) (Auto) 6.5 % (0.0-12.0) Eosinophils (%) (Auto) 1.5 % (0.0-7.0) Basophils (%) (Auto) 1.0 % (0.0-2.0) Neutrophils # (Auto) 1.6 10 ^3/uL (1.6-8.6) Lymphocytes # (Auto) 2.2 10 ^3/uL (0.4-5.4) Monocytes # (Auto) 0.3 10 ^3/uL (0-1.3) Eosinophils # (Auto) 0.1 10 ^3/uL (0-0.8) Basophils # (Auto) 0 10 ^3/uL (0-0.2) Nucleated Red Blood Cells 0.1 % Sodium Level 137 mmol/L (136-145) Potassium Level 3.7 mmol/L (3.5-5.1) Chloride Level 101 mmol/L (98-107) Carbon Dioxide Level 27 mmol/L (20-31) Anion Gap 9 (5-15) Blood Urea Nitrogen 9 mg/dL (9-23) Creatinine 1.39 mg/dL (0.700-1.30) Glomerular Filtration Rate Calc 61 mL/min (>90) BUN/Creatinine Ratio 6.5 (10.0-20.0) Serum Glucose 242 mg/dL (74-106) Calcium Level 10.1 mg/dL (8.7-10.4) Hemoglobin A1c 13.2 % A1C (<5.7) Triglycerides Level 250 mg/dL (< 150) Cholesterol Level 156 mg/dL (< 200) LDL Cholesterol 71 mg/dL (< 100) HDL Cholesterol 28 mg/dL (40-59) Thyroid Stimulating Hormone (TSH) 1.81 uIU/mL (0.55-4.78) Hepatitis B Surface Antigen Negative (Negative) Hepatitis C Antibody Negative (Negative) Total Bilirubin 0.5 mg/dL (0.2-1.0) Aspartate Amino Transferase (AST) 15 U/L (13-40) Alanine Aminotransferase (ALT) 13 U/L (7-40) Alkaline Phosphatase 82 U/L (46-116) Troponin I High Sensitivity 18 ng/L (</=54) B-Type Natriuretic Peptide 22.55 pg/mL (0-100) Total Protein 6.2 g/dL (5.7-8.2) Albumin 3.9 g/dL (3.2-4.8) Test 09/18/24 16:03 Urine Color Light-yellow (Yellow) Urine Clarity Clear (Clear) Urine pH 8.0 (5.0-9.0) Urine Specific Dawson 1.028 (1.001-1.035) Urine Protein Negative (Negative) Urine Ketones Trace (Negative) Urine Blood Negative /uL (Negative) Urine Nitrite Negative (Negative) Urine Bilirubin Negative (Negative) Urine Urobilinogen Normal mg/dL (Negative) Urine Leukocyte Esterase Negative /uL (Negative) Urine RBC <1 /hpf (0 - 3) Urine Microscopic WBC < 1 /HPF (0-3) Urine Squamous Epithelial Cells None seen /hpf (<5) Urine Bacteria None seen /hpf (None Seen) Urine Glucose 4+ mg/dL (Normal) Other Laboratory Tests 09/21/24 09:57 Brief Hx & Hospital Course: This is a 53-year-old male with past medical history of DM2, HTN presented to ED with the complain of feeling dizzy, anxious and occasionally blurry vision. Patient visited to ER in [place] 3rd week of August due to similar symptoms and found his blood sugar level was high. Patient treated with insulin, IV fluid and discharged home with glucose monitor. Patient checked his blood sugar at home and found his blood sugar high which ranges 350 to 600. Patient followed up with his primary care and prescribed oral metformin and advised to monitor blood sugar daily. Patient found his blood sugar > 300 though taking oral metformin. Last blood sugar at home 360,466. Patient used walker last three days because he was weak, unstable and risk of fall. Patient also mentally disturbed by his neighbor, they consistently keep pressure to leave his house. Patient lives alone and follow up with psychiatrist and prescribed anxiety medication unable to mentioned, took as needed. Currently patient denies any chest pain, shortness of breath, nausea, vomiting, abdominal pain, headache or any acute distress. Hospital course: Initially patient was presented with uncontrolled type 2 diabetes mellitus with hyperglycemia, blood sugar was 473, and hemoglobin A1c was 13.2. blood sugar was controlled with Lantus 20 units at q.a.m., Lispro 3 units bolus before each meal and mild sliding scale of insulin. Patient was counseled regarding diabetic low carb diet, lifestyle modification and physical exercise. Patient was also educated on home insulin administration and the use of a insulin sliding scale. was discussed with the patient and all questions were answered. Patient is being discharged to home with Lantus 20 units SC at q.a.m., insulin lispro 4 units SC before each meal and advised to resume home medications. patient was also advised to follow up with [facility] in 1-2 weeks. Physical examination: General Appearance: Alert, Oriented X3, Cooperative, No acute distress HEENT: Atraumatic, PERRLA, EOMI, Mucous membrane moist/pink Respiratory: Clear to auscultation, Normal air movement Cardiovascular: Regular rate, Normal S1, Normal S2, No murmurs, no chest wall tenderness Abdominal: Normal bowel sounds, Soft, No tenderness, No hepatospenomegaly, No masses Extremities: No clubbing, No cyanosis, No edema, Normal pulses, No tenderness/swelling Skin: No rashes, No breakdown, No significant lesion Neuro: Normal gait, Normal speech, Strength at 5/5 X4 ext, Normal tone, Sensation intact, Cranial nerves 3-12 NL, Reflexes 2+ Psych/Mental Status: Mental status NL, Mood NL Consults/Reason for consult No consultation was done Condition at Discharge: Guarded Final Diagnosis/Problems List # Uncontrolled type 2 diabetes mellitus with hyperglycemia, hemoglobin A1c 13.2 # Ruled out CAILIN/VMN # Leucopenia unspecified # Tachycardia and tachypnea likely due to dehydration # Hypertriglyceridemia # Essential hypertension Discharge Disposition: Home Discharge Instruct/Medications Diet: Consistent carbohydrate Activity: No Restrictions, As Tolerated Follow Up/Referral: Follow up with [facility] in 1 to 2 weeks Medications: As per EMR Scheduled Cholecalciferol (Vitamin D3), 1 TAB PO DAILY, (Reported) Insulin Glargine (Lantus), 20 UNITS SC QAM Insulin Lispro (Human) (Humalog), 4 UNITS SC AC Losartan Potassium (Losartan Potassium), 1 TAB PO DAILY Metformin Hydrochloride (Metformin Hcl), 1 TAB PO BID Durable Medical Equipment Blood Glucose Monitoring Suppl (D-Care Glucometer Kit/Glu W/Device), KIT XX TID, (DME) Lancets (Freestyle Lancets), AC XX TID, (DME) Lancets (Freestyle Lancets), AC XX TID, (DME) Discharge Statement: "Patient was advised to return to the ER or call 911 if any headaches, dizziness, shortness of breath, chest pain, abdominal pain, bleeding, fevers, or worsening of medical condition. Patient was counseled about treatment plan, medications, possible side effects, patientverbalized understanding. All questions were answered to the best of my ability. This discharge took greater then 30 minutes in planning, reviewing documentation, counseling the patient, and discussing with other team members." ASSESSMENT ASSESSMENT Assessment # Uncontrolled type 2 diabetes mellitus with hyperglycemia, hemoglobin A1c 13.2 Date of Service: Sep 21, 2024 Billing Provider: ERIKA CHAWLA MD Common Visit Codes: [id number] DISCH DAY >30min CHRISTIAN PEDERSON Sep 21, 2024 16:53 ERIKA CHAWLA MD Sep 22, 2024 20:22
[2024-09-21 17:00] VITALS: BP 129/101; PULSE 89; RESP 17; TEMP 98.2; O2SAT 96
== END 2024-09-21 17:43 | disposition home or self-care (01) | DRG 420 ==
LOC: ER 15:30 → OVERFLOW 23:23 → WEST WING 09-19 04:08
PROVIDERS: ADMIT Student in an Organized Health Care Education/Training Program; ATTEND Student in an Organized Health Care Education/Training Program
DX: E11.65 Type 2 diabetes mellitus with hyperglycemia (principal); E11.22 Type 2 diabetes mellitus with diabetic chronic kidney disease; N18.2 Chronic kidney disease, stage 2 (mild); F17.210 Nicotine dependence, cigarettes, uncomplicated; F41.9 Anxiety disorder, unspecified; I12.9 Hypertensive chronic kidney disease with stage 1 through stage 4 chronic kidney disease, or unspecified chronic kidney disease; E66.01 Morbid (severe) obesity due to excess calories; E78.1 Pure hyperglyceridemia; Z68.35 Body mass index [BMI] 35.0-35.9, adult; Z79.4 Long term (current) use of insulin; Z79.84 Long term (current) use of oral hypoglycemic drugs; Z91.81 History of falling; E86.0 Dehydration
CPT/HCPCS: 36415; 80048; 80053; 80061; 81001; 82962; 83036; 83880; 84443; 84484; 85025; 86803; 87340; 96361; 96372; 96374; G0378; J1815

== ENCOUNTER → 2024-12-17 | Outpatient (CLI) | payer MEDICAID ==
[~2024-12-17] MED LIST: BLOO1KIT60 XX; CHOL20007 PO; INSLANTI SC; INSLISPI SC; INSU-567 XX; LANC-347 XX; LOSA-535 PO; METF-370 PO
[2024-12-17 11:56] LABS: Hematocrit 40.8 % (41.0-53.0); Hemoglobin 13.7 g/dL (13.5-17.5); Mean Corpuscular Hemoglobin 29.9 pg (28.0-32.0); Mean Corpuscular Volume 89.3 fL (80.0-100.0); Nucleated Red Blood Cells % 0.1 %
[2024-12-17 12:06] LABS: Urine Protein, UAD Negative (Negative)
[2024-12-17 12:26] LABS: Alanine Aminotransferase 17 U/L (7-40); Albumin 4.6 g/dL (3.2-4.8); Alkaline Phosphatase 63 U/L (46-116); Anion Gap 9 (5-15); BUN/Creatinine Ratio 12.1 (10.0-20.0); Blood Urea Nitrogen 17 mg/dL (9-23); Calcium 9.3 mg/dL (8.7-10.4); Carbon Dioxide 30 mmol/L (20-31); Chloride 101 mmol/L (98-107); Potassium 3.7 mmol/L (3.5-5.1); Sodium 140 mmol/L (136-145); Total Protein 8.0 g/dL (5.7-8.2)
[2024-12-17 12:27] LABS: Bilirubin, Total 0.4 mg/dL (0.2-1.0); Glucose 116 mg/dL (74-106)
== END | disposition home or self-care (01) ==
LOC: LAB 11:20
PROVIDERS: ATTEND Internal Medicine
DX: E11.65 Type 2 diabetes mellitus with hyperglycemia (principal)
CPT/HCPCS: 36415; 80053; 81001; 83036; 85025